=== PATIENT | female | born 1995 | race Caucasian/White ===

== ENCOUNTER 2020-09-08 18:49 | Emergency (ER) | payer OTHER ==
[~2020-09-08] VITALS: Ht 162.6 cm; Wt 77.1 kg
[2020-09-08 18:52] VITALS: Ht 162.6 cm; Wt 77.1 kg
[2020-09-08 20:25] LABS: PLATELET COUNT 338 x10^3mcL (130-400); RED CELL DISTRIBUTION WIDTH 12.1 % (11.5-14.5)
[2020-09-08 20:28] LABS: CARBON DIOXIDE 22.7 mmol/L (21-32); CHLORIDE SERUM 102 mmol/L (98-107); CREATININE SERUM 0.9 mg/dL (0.6-1.0); GFR1 > 60 mL/min; GLUCOSE SERUM 89 mg/dL (74-106); POTASSIUM SERUM 3.9 mmol/L (3.5-5.1); SODIUM SERUM 134 mmol/L (136-145)
[2020-09-08 20:33] LABS: ALKALINE PHOSPHATASE 49 U/L (46-116); ALT/SGPT 20 U/L (14-59); AST/SGOT 12 U/L (15-37); BILIRUBIN TOTAL 0.6 mg/dL (0.20-1.00)
[2020-09-08 20:46] LABS: ALBUMIN 3.1 g/dL (3.4-5.0); BAND NEUTROPHIL 0 % (0-10); BASOPHIL 0 % (0-2); SEGMENTED NEUTROPHILS 91 % (37-75); TOTAL PROTEIN, SERUM 5.8 g/dL (6.4-8.2); rbc morphology (normal/abnorm) NORMAL (NORMAL)
[2020-09-08 21:40] LABS: UA SPECIFIC GRAVITY 1.025 (1.005-1.035); microscopic required? YES; urine erythrocyte 3+ (NEGATIVE)
[2020-09-09 02:26] VITALS: BP 117/82
== END 2020-09-09 02:26 | disposition home or self-care (01) ==
LOC: ED 18:49
PROVIDERS: Emergency Medicine
DX: O03.9 Complete or unspecified spontaneous abortion without complication (principal)
CPT/HCPCS: J0696; J2405; J7030; J7060